=== PATIENT | female | born 1970 | race American Indian/Alaskan Native ===

== ENCOUNTER 2019-05-25 08:04 | Day surgery (SDC) | payer OTHER, SELFPAY ==
[2019-05-20 11:01] VITALS: BMI 26.2
[2019-05-25] VITALS (17 sets, daily range): BP systolic 98–110; BP diastolic 58–71; PULSE 51–81; RESP 9–19; TEMP 36.2–37.2; O2SAT 94–100; BMI 25.9
--- NOTE | 2019-05-25 | PATH_ITS ---
[facility] Accession Number: [id number] . 01 Material submitted: . uterus - UTERUS AND BILATERAL FALLOPIAN TUBES . 02 Diagnosis: Uterus and Bilateral Fallopian Tubes, Supracervical Hysterectomy and Bilateral Salpingectomy: Leiomyoma, 3 cm in greatest dimension. Weakly proliferative endometrium with no diagnostic abnormality. Bilateral fimbriated fallopian tubes with simple benign paratubal cysts. No evidence of malignancy. V 05/27/2019 1146 Local . 02 Electronically signed: . Jj Rojas MD, PhD, Pathologist NPI- [id number] . 01 Gross description: . Received in formalin, labeled uterus and bilateral fallopian tubes, is a morcellated uterus (68 grams, 10.8 x 6.5 x 3.5 cm in aggregate) and two detached fimbriated fallopian tubes (tube #1: length-5.2 cm, diameter-0.3 cm; tube #2: length-6.2 cm, diameter-0.4 cm. The cervix and ovaries are absent. The tissue cannot be oriented and the endometrium and myometrium cannot be grossly measured. The parenchyma is foote and contains a white whorled, solid, firm, well-circumscribed, homogenous nodule (3.0 x 2.3 x 2.2 cm). The serosa is foote smooth and shiny. The fallopian tubes have foote smooth shiny serosa and foote unremarkable lumens. Section code: (A1-A4) parenchyma, civil rights representative; (A5) fallopian tube #1, civil rights representative serial sections; (A6) fimbria #1, bivalved, entirely submitted; (A7) fallopian tube #2, civil rights representative serial sections; (A8) fimbria #2, bivalved, entirely submitted. ([id number]) /MRV 05/26/2019 [facility] . 02 Pathologist provided ICD-10: N93.8, D25.9 . 02 CPT . 387204 Performed at: 01 [facility] [address] [place] [address], [place], [place] [id number] MD Nikolay Hamlin MD Phone: [phone] Performed at: 02 [facility] [address] [place], [place] [id number] MD Amy Apodaca MD Phone: [phone]
[2019-05-25] MEDS: LACTATED RINGERS 1,000 ML 100 ML IV ×4 (08:19→23:14)
--- NOTE | 2019-05-25 09:06 | PM.PREOP ---
Pre-operative Note Interval Note History & Physical reviewed/Exam performed by Physician: Yes Changes to H&P: No
[2019-05-25] MEDS: CEFAZOLIN 2 GM/100 ML FROZ.PIGGY IV (09:20)
--- NOTE | 2019-05-25 10:03 | SUR.OPER ---
Lithotomy on padded OR bed. [place] Pad Positioner under torso. Head on pillow, arms padded and tucked at sides. Legs secured in padded yellow fins stirrups.
[2019-05-25] MEDS: ROPIVACAINE 0.2% PF 2 MG/ML 10ML AMP 40 ML INJ (10:20)
[2019-05-25] MEDS: BUPIVACAINE 0.5% (PF) VIAL 30 ML INJ (10:22)
--- NOTE | 2019-05-25 11:20 | PM.GYNOP.1 ---
Operative Date/Time/Diagnoses Date of procedure: 05/25/19 Time of procedure: 11:20 Pre-op diagnosis: Menorrhagia Fibroid uterus Post-op diagnosis: same Procedure & Clinicians Procedure: Procedures Operation Date: 05/25/19 09:45 Actual Procedures Side Surgeon p Laparoscopic Supracervical Hysterectomy w/bilateral salpingectomy, removal of IUD Melba Glynn MD Indications: Menorrhagia Fibroid uterus Surgeon: Melba Glynn Marketing Manager Health Communications: Joon Ashby Anesthesia Type: General Operative Notes Findings: 10 week size fibroid uterus Adenomyosis Normal ovaries and tubes Left adnexal adhesions Normal liver gallbladder Appendix previously removed Closure Type: primary Specimen(s): left tube, right tube and uterus Applied: catheter (Removed at the end of the case) Estimated blood loss (mL): 75 Blood products transfused: none Procedure in detail: The patient was taken to the operating room where she was placed in the dorsal supine position. After adequate general endotracheal anesthesia was achieved, she was placed in the dorsal lithotomy position, and prepped and draped in the usual sterile fashion. A timeout was performed. A bivalve speculum was placed into the vagina and the anterior lip of the cervix grasped with a single-tooth tenaculum. The cervical os was sequentially dilated until the ZUMI uterine manipulator could pass easily into the endometrial cavity. The single-tooth tenaculum was removed from the anterior lip of the cervix, and the bivalve speculum was removed from the vagina. Attention was then turned to the abdomen where 6 mL of half percent Marcaine with epinephrine were injected in the umbilical fold. A 5 mm incision was made. The Verhees needle was placed into the peritoneal cavity, and its placement confirmed by aspiration and drop test. The Verhees needle was removed. A 5 mm trocar was placed without difficulty. 2 other incisions were made midway between the pubic symphysis and umbilicus after 5 mL of half percent Marcaine with epinephrine were injected. These were 5 mm incisions. Two 5 mm trochars were placed under direct visualization. The right tube was grasped with an atraumatic grasper. Using the plasma kinetic with settings of 40 W the mesosalpinx was cauterized and cut all the way down to the cornua of the uterus. The cornua of the uterus was then grasped with an atraumatic grasper. The utero-ovarian ligaments were cauterized and cut. The round ligament and broad ligament was cauterized and cut with plasma kinetic. Hemostasis was achieved. The bladder flap was created using the plasma kinetic with cautery and cut fpc across. The uterine arteries on the right side were extensively cauterized with plasma kinetic. All of this was repeated on the left side after adhesions were taken down with the point cautery between the tube, uterus, and ovary. The remainder of the bladder flap was created using the plasma kinetic, and the bladder taken down off the lower uterine segment and cervix. Using the Endoloop, the cervix was amputated from the uterus 2 cm above the uterosacral ligaments, after the ZUMI uterine manipulator was removed from the uterus. There was a small amount of bleeding noted from the posterior and left edge of the cervix, and this was cauterized for hemostasis. A sponge stick was placed into the vagina. 6 mL of half percent Marcaine with epinephrine were injected above the pubic symphysis. A 12 mm trocar was placed and then removed. A Ava was used to extend the fascial incision bluntly. An Endobag was placed through the suprapubic trocar and the uterus placed into the Endobag. The Vishal placed into the endobag. The uterus was hand morcellated in approximately 3 pieces. The Vishal was removed from the endobag. The Endobag was removed from the peritoneal cavity. The pelvis was copiously irrigated with warm normal saline. No bleeding was noted. 20 cc of 0.2% ropivacaine were placed over the pedicles. The instruments were removed from the abdomen. The CO2 was allowed to escape. The suprapubic incision was closed on the fascia with 0 Vicryl. The subcutaneous layer on the suprapubic incision was closed with 2 simple interrupted sutures with 3 0 Vicryl. All of the incisions were closed with 4-0 Biosyn in a subcuticular fashion. The moistened sponge stick was removed from the vagina. Sponge, lap, and instrument counts were correct x 2. The patient tolerated the procedure well, was taken to PACU in stable condition. Complications: none Post-operative Condition: stable Disposition: PACU Plan for aftercare: To acute care after recovery
--- NOTE | 2019-05-25 11:44 | SUR.PHASEI ---
1110 late entry. To PACU sleeping, aroused easily to voice, denied pain/nausea.. Skin warm and dry, resp unlabored, Rhonda-pad placed, abdominal dressings CDI. Returned to sleep. 1145 continues sleeping, vss. Attempted to call report to the floor prior to arousing pt; nurse will return call when available. Stable.
--- NOTE | 2019-05-25 12:02 | SUR.PHASEI ---
Glasses returned to pt.
--- NOTE | 2019-05-25 12:29 | SUR.PHASEI ---
1228 waited for receiving RN to receive pt. Assisted SOFTWARE COMPUTER SPECIALIST to ambulate patient to the bathroom after initial VS done. VSS. Voided. Bed down and locked, call light within reach. SCDs to be attached after returning to bed. Pt. wearing glasses, family in the room, clothing bag put in closet. Stable and pleasant.
--- NOTE | 2019-05-25 13:13 | PC.ADMIT ---
[id number] [facility] Admission Note: The patient,Afua Thibodeaux,48 y/o, was given written information regarding hospital policies, unit procedures and contact persons. Patient's smoking status: Former smoker. Vital Signs - 8 hr 05/25/19 08:24 05/25/19 11:10 05/25/19 11:15 Temperature 97.4 F L 97.5 F L 97.4 F L Pulse Rate 67 52 L 51 L Respiratory Rate 15 15 14 Blood Pressure 104/71 108/71 105/58 L Pulse Oximetry 98 98 05/25/19 11:20 05/25/19 11:25 05/25/19 11:30 Temperature Pulse Rate 52 L 52 L 52 L Respiratory Rate 15 11 L 12 Blood Pressure 104/65 103/61 103/63 Pulse Oximetry 99 100 99 05/25/19 11:35 05/25/19 11:45 05/25/19 11:55 Temperature Pulse Rate 51 L 51 L 71 Respiratory Rate 9 L 12 11 L Blood Pressure 100/65 100/63 98/60 Pulse Oximetry 99 99 99 05/25/19 12:05 05/25/19 12:30 Temperature 97.2 F L 97.7 F Pulse Rate 53 L 57 L Respiratory Rate 12 15 Blood Pressure 99/65 101/64 Pulse Oximetry 99 100 Rec'd pt from PACU to rm 226 at 1230 via bed. Pt is AO x3 and making needs known with clear, logical speech. Bedside report received from AIR QUALITY SPECIALIST. Completed admission assessment. Pt reports pain 3/10 to abd. Provided ice pack and educated to pharm and non pharm pain med regimen. Pt verbalizes understanding. Requesting orange juice and water. Order placed per protocol for full liquid diet. Pt denies n/v. VSS. Oriented to room, environment, bedside report, plan of care. Pt verbalizes understanding. Demonstrates use of call light. Sisters at bedside. Will monitor.
[2019-05-25] MEDS: KETOROLAC 30 MG/ML VIAL IV ×2 (13:42→21:10)
[2019-05-25] MEDS: OXYCODONE/ACETAMINOPHEN 5/325 TABLET 2 TAB PO ×2 (15:08→19:24)
--- NOTE | 2019-05-25 20:59 | PC.NURSE ---
pt had scant amount of bright red blood discharge. pain controlled with percocet and ice packs. lap sites are cdi. ivf. sba to the BR.
[2019-05-25] MEDS: DOCUSATE 250 MG CAPSULE PO (21:04)
[2019-05-26] MEDS: OXYCODONE/ACETAMINOPHEN 5/325 TABLET 2 TAB PO ×4 (00:05→13:23)
[2019-05-26 04:28] VITALS: BP 103/60; PULSE 64; RESP 18; TEMP 37.2; O2SAT 97
[2019-05-26 05:49] LABS: Add Manual Diff / Slide Review NO; Basophils Absolute Auto 0 /uL (0-100); Basophils Percent Auto 0.4 % (0-2); Eosinophils Absolute Auto 0 /uL (0-450); Eosinophils Percent Auto 0.3 % (2-4); Hemoglobin 12.4 g/dL (12.0-16.0); Lymphocytes Absolute Auto 1800 /uL (1100-4500); Lymphocytes Percent Auto 17.5 % (25-40); Mean Corpuscular HGB Conc 33.6 % (30-36); Mean Corpuscular Hemoglobin 30.4 PG (26-34); Mean Corpuscular Volume 90.5 fL (80-100); Monocytes Absolute Auto 600 /uL (0-900); Monocytes Percent Auto 5.6 % (3-14); Neutrophils Absolute Auto 7700 /uL (1500-7000); Neutrophils Percent Auto 76.2 % (50-75); Platelet Count 230 X10^3/uL (150-400); Red Blood Cell Count 4.09 X10^6/uL (4.0-5.2); Red Cell Distribution Width 13.3 % (11.6-14.8); White Blood Cell Count 10.1 X10^3/uL (4.5-11.0)
[2019-05-26 08:00] VITALS: BP 102/71; PULSE 58; RESP 15; TEMP 36.7; O2SAT 98
[2019-05-26] MEDS: DOCUSATE 250 MG CAPSULE PO (08:32)
--- NOTE | 2019-05-26 13:46 | PC.NURSE ---
Day Shift- Pt voided approx 400mls of yellow urine with 3 scant clots present around 0820. Bladder scanned at 0850 for 1ml. Abd lap sites X4 gauze and tegaderm dressings CDI. Rhonda-pad has scant spotting. OOB with SBA, steady gait. Rates 4-5/10 dull aching and slight bloating to abd. Pain management plan discussed PRN Percocet given at 0835 with good effect. Pt stated feeling slightly nauseated, no flatus this AM. Pt had approx 600mls around 1000, stated feeling much better after. Pt had another small episode after lunch. Tolerating fluids and crackers. Explained to pt that if nausea is persistent and unable to keep food or fluids down to call Dr. Glynn office. Discharge summary packet reviewed with pt, Pt agrees to call Dr. Glynn office to make a follow up appointment for in 2 weeks. Pt states has all belongings. Pt left unit in no distress at 1346 via wheelchair with POCKET SETTER LOCKSTITCH escort. Pt's mother and brother present to drive pt home. Pt does have prescription for Oxycodone. Also instructed on preventing constipation.
--- NOTE | 2019-05-26 14:48 | CM.DANOTE ---
DCP/Assessment: Reviewed chart. Patient is a 48yr old female admitted to [facility] for hysterectomy performed on 05-25-[address] Glynn. Primary payor is 1)[facility] 2)[employer]. PCP is Dr. Lujan. Met with patient explained CM/SW role. Patient hopes to d/c home today. Patient is completely I in all ADL's. Patient does not anticipate any d/c planning needs. P: Home when stable. EMEKA Flowers Discharge Planning/Care Management CM Discharge Assessment Start: 05/26/19 13:48 Freq: Status: Discharge Protocol: Document 05/26/19 14:47 KJS (Rec: 05/26/19 14:48 KJS [id number]) Discharge Planning Assessment Assigned Drapery Examiner EMEKA Flowers Contact Information Tu Zuñiga (x-) Advance Directives? No Advance Directives on File No History Provided By Patient Has Patient been admitted in last 30 No days? Prior Living Arrangements House Household Members none Type of transporation used prior to Drives own vehicle admit Independent with ADL's Yes Is patient alert and oriented? Yes Caregiver for Another No Barriers to Discharge No Discharge Plan Home Referrals Initiated None needed Whiteboard Updated in Patient Room with Yes name and ext. # of Drapery Examiner Review Status In Process Next Review Type Continued Stay Review Pre-Anesthesia Assessment Start: 05/20/19 11:01 Freq: Status: Complete Protocol: Document 05/20/19 11:01 CAB (Rec: 05/20/19 11:13 CAB [id number]) Pre-Anesthesia Assessment Patient Information Reviewed Via Chart Review Seen Specialist in Last 12 Months Yes Specialist Seen Cloth Booker Primary Language Zambian Strike Plate Attacher Required No Height 161.29 cm Weight 68.039 kg Body Mass Index (BMI) 26.2 Barriers to Learning None Hx Anesthesia Reactions No Anesthesia Review Requested No Coffin Maker No alcohol intake current Smoking Status Former smoker History of Falling (Recent or History of No ) Patient is completely paralyzed or No completely immobile Mental Status Oriented to own ability Is patient on oxygen? No Does patient have KRUSE/SOB No Hx Sleep Apnea No Currently Taking a Beta Joseph No Can You Climb a Flight of Stairs Without Yes SOB Hx Chest Pain No Hx SOB No Hx Syncope or Dizziness No Anti-Coagulant Therapy No Has a Recycling Operations Manager No Cardiac Testing No Hx Pacemaker/ICD No Pacemaker Rep Required? No Cardiac Clearance Received Not Applicable dysphagia No Urinary Catheter Present No Hx Urinary Self Catheterization No Diabetes No Patient No Lactating No Marital Status Patient Discharge Plan Description Return Home Advance Directives? No
--- NOTE | 2019-05-27 17:19 | P.DS_ITS ---
History of Present Illness History of Present Illness Date Patient Seen: 05/26/19 Time Patient Seen: 13:15 Chief complaint: [id number] *OPB* Discharge Providers Provider Discharge Date: 05/26/19 Primary care physician: Bella Lujan DO Discharge provider: Melba Glynn MD Summary Hospital Course Discharge Diagnosis: Uterine fibroids Menorrhagia Dysmenorrhea Hospital Course: Patient presented on 05/25/2019 for a scheduled laparoscopic supracervical hysterectomy with bilateral salpingectomy. She underwent this procedure without complication. Her catheter was removed at the end of the p rocedure and she was able to void without difficulties. On postop day # 1 she was tolerating a diet, ambulating without assistance, pain was well controlled. She was discharged home to follow up at 2 weeks. Status at Discharge Cognitive/behavioral status at discharge: oriented Functional status at discharge: independent ambulation Overall status at discharge: patient is progressing back to baseline Time Spent with Patient Time spent: Less than 30 minutes Exam Vital Signs (past 8 hours): Oxygen Delivery Method Room Air Oxygen Flow Rate 0 Narrative Exam Narrative: Generally: Patient is sitting up in bed, no acute distress Lungs: Clear to auscultation bilaterally Cardiovascular: Regular rate and rhythm Abdomen: Soft, good bowel sounds. Incisions: Clean dry and intact with op sites Extremities: Negative Homans Objective Labs Result Diagrams: 05/26/19 05:11 Discharge Plan Discharge Plan Patient Disposition: Home Discharge comment: Call with fever, chills, redness or drainage around incisions or bleeding vaginally more than spotting to light Ibuprofen 600mg every 6 hours as needed Discharge Med Rec/Prescriptions Prescriptions: New oxycodone-acetaminophen [Percocet] 5-325 mg tablet 1 tab PO Q4-6H PRN (Reason: pain) Qty: 30 RF: 0 No Action lorazepam [Ativan] 0.5 mg tablet 0.25 mg PO BID PRN (Reason: anxiety) Qty: 30 RF: 1 Follow up/Referrals: Melba Glynn MD [Physician] - 2 Weeks (Please call office to make follow up apointment.) Discharge Orders: Discharge (Order); Ordered 05/26/19 Ordered By: Melba Glynn Provider Discharge Instructions Diet: Regular Skin/Wound/Dressing Care Report to your healthcare provider any signs of infection, such as:: chills, fever, increased pain, unusual drainage and unusual redness Dressing: Remove outer plastic dressings and guaze tomorrow after a shower Visit Report/Discharge Packet Instructions: Constipation, DI for Hysterectomy, How to Prevent Falls, DI for Postoperative Pain, Oxycodone/Acetaminophen (By mouth) Stand Alone Forms: Surgery Discharge Discharge Data Primary Care Provider: Bella Lujan Attending Provider: Melba Glynn Discharges patient from system. Discharge Date/Time: 05/26/19 13:46
== END 2019-05-26 13:46 | disposition home or self-care (01) ==
LOC: OR 08:04 → AC 08:08
PROVIDERS: PCP Family Medicine; Visit Provider Obstetrics & Gynecology
PROC: 0UT94ZL Resection of Uterus, Supracervical, Percutaneous Endoscopic Approach (ICD-10-PCS; CPT 58542; principal; 2019-05-25 09:45)
DX: D25.9 Leiomyoma of uterus, unspecified (principal); N93.8 Other specified abnormal uterine and vaginal bleeding
CPT/HCPCS: 58542; 36415; 85025; J0330; J0690; J1100; J1885; J2405; J2704; J2795; J3010

== ENCOUNTER → 2020-06-22 10:35 | Outpatient (CLI) | payer OTHER, SELFPAY ==
[2019-05-25 12:30] VITALS: BMI 25.9
[2020-06-22 12:01] LABS: Alanine Aminotransferase 30 IU/L (<35); Albumin 4.6 g/dL (3.5-5.0); Albumin Globulin Ratio 1.3 (1.0-2.8); Alkaline Phosphatase 71 U/L (38-126); Aspartate Aminotransferase 35 IU/L (14-36); BUN Creatinine Ratio 10.7 (6-22); Bilirubin Total 0.9 mg/dL (0.2-1.3); Blood Urea Nitrogen 8 mg/dL (7-17); Calcium 9.2 mg/dL (8.4-10.2); Carbon Dioxide 29 mmol/L (22-32); Chloride 104 mmol/L (98-107); Cholesterol 252 mg/dL (140-199); Estimated Glomerular Filt Rate > 60.0 mL/min (>60); Globulin 3.6 g/dL (1.7-4.1); Glucose 89 mg/dL (70-100); HDL Cholesterol 103 mg/dL (40-60); HEMOLYSIS < 15 (0-50); LDL Cholesterol Calculated 123 mg/dL (<100); Sodium 139 mmol/L (137-145); Total Protein 8.2 g/dL (6.3-8.2); Triglycerides 132 mg/dL (35-150)
[2020-06-22 12:52] LABS: TSH w/ Reflex to FT4 1.66 uIU/mL (0.47-4.68)
== END ==
PROVIDERS: PCP Family Medicine; Referring Provider Family Medicine; Visit Provider Family Medicine
DX: E66.9 Obesity, unspecified (principal); E78.5 Hyperlipidemia, unspecified; F41.9 Anxiety disorder, unspecified; N95.1 Menopausal and female climacteric states
CPT/HCPCS: 36415; 80053; 80061; 83001; 84443

== ENCOUNTER 2021-03-06 02:35 | Emergency (ER) | payer OTHER, SELFPAY ==
[2019-05-25 12:30] VITALS: BMI 25.9
[2021-03-06 02:38] VITALS: BP 125/75; PULSE 84; RESP 18; TEMP 36.4; O2SAT 99; BMI 30.1
--- NOTE | 2021-03-06 02:50 | ED_ITS ---
HPI - GI Bleed General Chief complaint: GI Bleed Stated complaint: Vomiting blood Time Seen by Provider: 03/06/21 02:37 History of Present Illness HPI Narrative: 50-year-old female former smoker and daily drinker presents with a chief complaint of a single painless episode of bright red vomiting earlier today. She is not dizzy nor weak or lightheaded. She denies any pain. She denies any recent dietary change or new medications. She never had any upper GI bleeding, she has never had an endoscopy. She denies any history of cirrhosis or other. She does not take blood thinners or use large amounts of NSAIDs. Related Data Previous Rx's Medication Instructions Recorded estradiol 0.05 mg/24 hr semiweekly 1 patch TRANSDERMAL 2XW #24 each 12/21/20 transdermal patch lorazepam 0.5 mg tablet (Ativan) 0.25 mg PO BID PRN #30 tab 12/22/20 escitalopram oxalate 10 mg tablet 10 mg PO DAILY #90 tab 02/13/21 ondansetron 4 mg disintegrating 4 mg PO TID-QID PRN #10 tab 03/06/21 tablet pantoprazole 40 mg tablet,delayed 40 mg PO DAILY #30 tab 03/06/21 release (Protonix) Allergies Allergy/AdvReac Type Severity Reaction Status Date / Time No Known Drug Allergies Allergy Verified 02/13/21 08:23 Review of Systems Review of Systems Narrative: GENERAL: Denies chills, fatigue, malaise, fever, sweats. HEENT: Denies sinus pain, ear pain, sore throat, difficulty swallowing, dizzi ness. RESPIRATORY: Denies dyspnea, cough, wheezing, hemoptysis, sputum. CARDIOVASCULAR: Denies chest pain, palpitations, orthopnea, edema, GASTROINTESTINAL: See HPI : Denies dysuria, frequency, incontinence, hematuria, urinary retention. MUSCULOSKELETAL: denies weakness, joint pain, or bony pain SKIN: Denies rash, skin lesions, or other NEUROLOGIC: Denies weakness, headache, numbness, change in speech, confusion, seizures, incoordination. PSYCHIATRIC: No concerning psychosocial issues. 12 point review of systems is negative except for those stated above Patient History Medical History Anxiety (~2012) Dermatitis DUB (dysfunctional uterine bleeding) Rosacea (~2007) Surgical History Anesthesia S/P laparoscopic supracervical hysterectomy (~05/25/19) Status post appendectomy (~1999) Family History Grandmother Breast cancer Heart disease Hypertension Heart attack Mother History of cholecystectomy Sister History of cholecystectomy Father No problems noted. Grandfather Pneumonia Social History household members: none Smoking Status: Former smoker alcohol intake: current Smoking Status: Former smoker Exam Narrative Exam Narrative: GENERAL: [50] year old patient appears stated age. Well- developed patient, in mild distress. HEAD: Atraumatic. Normocephalic. EYES: Pupils equal round and reactive. Extraocular motions intact. No scleral icterus. No injection or drainage. ENT: Nose without bleeding, purulent drainage. Throat without erythema, tonsillar hypertrophy or exudate. Airway patent. NECK: Trachea midline. Non tender CARDIOVASCULAR: Regular rate and rhythm without murmurs, gallops, or rubs. RESPIRATORY: Clear to auscultation. Breath sounds equal bilaterally. No wheezes, rales, or rhonchi. GASTROINTESTINAL: Abdomen soft, non-tender, nondistended. EXTREMITIES: No edema or joint tenderness. BACK: Nontender without deformity or crepitance. No flank tenderness. NEURO: AOx3. SKIN: No rash or erythema of visible areas Initial Vital Signs Initial Vital Signs: Vital Signs Temperature 97.5 F L 03/06/21 02:38 Pulse Rate 84 03/06/21 02:38 Respiratory Rate 18 03/06/21 02:38 Blood Pressure 125/75 03/06/21 02:38 Pulse Oximetry 99 03/06/21 02:38 Course Course Course Narrative: Patient has very reassuring physical exam and labs. Steff Blatchford bleeding scale score is 0. Orders Ordered: Discontinued Medications Octreotide Acetate (Octreotide 100 Mcg/Ml Vial) 50 mcg IV NOW ONE Stop: 03/06/21 03:33 Last Admin: 03/06/21 04:09 Dose: 50 mcg Documented by: MANOJ Ondansetron HCl (Ondansetron 4 Mg/2 Ml Inj) 4 mg IV NOW ONE Stop: 03/06/21 03:33 Last Admin: 03/06/21 04:09 Dose: 4 mg Documented by: MANOJ Pantoprazole Sodium (Pantoprazole 40 Mg Vial) 40 mg IV NOW ONE Stop: 03/06/21 03:33 Last Admin: 03/06/21 04:09 Dose: 40 mg Documented by: MANOJ Consultations Consultation #1: Discussed with on-call surgery. Given her lack of ongoing symptoms, reassuring labs and vital signs and low bleeding risk score she is appropriate for discharge and follow-up for outpatient endoscopy. Return precautions to be given Vital Signs Vital signs: Vital Signs - 8 hr 03/06/21 02:38 Temperature 97.5 F L Pulse Rate 84 Respiratory Rate 18 Blood Pressure 125/75 Pulse Oximetry 99 MDM - GI Bleed Lab Data Result diagrams: 03/06/21 03:20 03/06/21 03:20 Labs: Lab Results 03/06/21 03/06/21 03/06/21 Range/Units 03:20 03:20 03:45 WBC 5.1 (4.5-11.0) X10^3/uL RBC 4.50 (4.0-5.2) X10^6/uL Hgb 13.3 (12.0-16.0) g/dL Hct 40.3 (36-46) % MCV 89.4 (80-100) fL MCH 29.4 (26-34) PG MCHC 32.9 (30-36) % RDW 13.9 (11.6-14.8) % Plt Count 261 (150-400) X10^3/uL Neut % (Auto) 45.1 L (50-75) % Lymph % (Auto) 41.8 H (25-40) % [place] % (Auto) 8.0 (3-14) % Eos % (Auto) 3.9 (2-4) % Baso % (Auto) 1.2 (0-2) % Neut # (Auto) 2300 (3638-9248) /uL Lymph # (Auto) 2100 (9185-9445) /uL [place] # (Auto) 400 (0-900) /uL Eos # (Auto) 200 (0-450) /uL Baso # (Auto) 100 (0-100) /uL PT 11.2 (10.1-12.7) SECONDS INR 1.0 (0.9-1.3) Sodium 137 (137-145) mmol/L Potassium 3.5 (3.4-5.1) mmol/L Chloride 107 (98-107) mmol/L Carbon Dioxide 28 (22-32) mmol/L BUN 9 (7-17) mg/dL Creatinine 0.63 (0.52-1.04) mg/dL Estimated GFR > 60.0 (>60) mL/min BUN/Creatinine Ratio 14.3 (6-22) Glucose 96 (70-100) mg/dL Calcium 8.8 (8.4-10.2) mg/dL Magnesium 1.7 (1.6-2.3) mg/dL Total Bilirubin 0.4 (0.2-1.3) mg/dL AST 31 (14-36) IU/L ALT 29 (<35) IU/L Alkaline Phosphatase 62 (38-126) U/L Total Protein 7.0 (6.3-8.2) g/dL Albumin 3.9 (3.5-5.0) g/dL Globulin 3.1 (1.7-4.1) g/dL Albumin/Globulin Ratio 1.3 (1.0-2.8) Lipase 215 (23-300) U/L Blood Type Antibody Screen 03/06/21 Range/Units 03:50 WBC (4.5-11.0) X10^3/uL RBC (4.0-5.2) X10^6/uL Hgb (12.0-16.0) g/dL Hct (36-46) % MCV (80-100) fL MCH (26-34) PG MCHC (30-36) % RDW (11.6-14.8) % Plt Count (150-400) X10^3/uL Neut % (Auto) (50-75) % Lymph % (Auto) (25-40) % [place] % (Auto) (3-14) % Eos % (Auto) (2-4) % Baso % (Auto) (0-2) % Neut # (Auto) (0423-7203) /uL Lymph # (Auto) (9144-0972) /uL [place] # (Auto) (0-900) /uL Eos # (Auto) (0-450) /uL Baso # (Auto) (0-100) /uL PT (10.1-12.7) SECONDS INR (0.9-1.3) Sodium (137-145) mmol/L Potassium (3.4-5.1) mmol/L Chloride (98-107) mmol/L Carbon Dioxide (22-32) mmol/L BUN (7-17) mg/dL Creatinine (0.52-1.04) mg/dL Estimated GFR (>60) mL/min BUN/Creatinine Ratio (6-22) Glucose (70-100) mg/dL Calcium (8.4-10.2) mg/dL Magnesium (1.6-2.3) mg/dL Total Bilirubin (0.2-1.3) mg/dL AST (14-36) IU/L ALT (<35) IU/L Alkaline Phosphatase (38-126) U/L Total Protein (6.3-8.2) g/dL Albumin (3.5-5.0) g/dL Globulin (1.7-4.1) g/dL Albumin/Globulin Ratio (1.0-2.8) Lipase (23-300) U/L Blood Type O Positive Antibody Screen Negative Discharge Plan Departure Patient Disposition: Home Clinical Impression: Acute GI bleeding Instructions: Gastrointestinal Bleeding Activity Restrictions/Additional Instructions: *You have been diagnosed with [single episode of gastrointestinal bleeding] *What to do: *Please continue to take your regular medications as directed. [ x] New medication prescriptions sent to your pharmacy: [ ] [ ] New medication written as a paper prescription [ ] No new medications given *Please follow up with your primary care provider in 2-3 days, call for an appointment. Let them know you were seen in the Emergency Department and that we ask that you be seen in follow up. We will electronically transmit a record of today's note if your PCP is in our system *If you do not have a primary care provider please contact the [facility] Resource line at [phone]. They will ask some questions about your medical history and help get you set up with a doctor in the community. *Return to Emergency Department if you should have any new, worsening or concerning symptoms, such as [fever greater than 101 F, shaking chills, worsening pain, persistent vomiting or other bothersome symptoms] Prescriptions: New ondansetron 4 mg tablet,disintegrating 4 mg PO TID-QID PRN (Reason: nausea and vomiting) Qty: 10 RF: 0 pantoprazole [Protonix] 40 mg tablet,delayed release (DR/EC) 40 mg PO DAILY Qty: 30 RF: 0 No Action estradiol 0.05 mg/24 hr patch semiweekly 1 patch transdermal 2XW Qty: 24 RF: 0 lorazepam [Ativan] 0.5 mg tablet 0.25 mg PO BID PRN (Reason: anxiety) Qty: 30 RF: 2 escitalopram oxalate 10 mg tablet 10 mg PO DAILY Qty: 90 RF: 0 Referrals: Kyung Smith MD [Physician] - Bella Lujan DO [Primary Care Provider] -
[2021-03-06 03:45] LABS: Add Manual Diff / Slide Review NO; Basophils Absolute Auto 100 /uL (0-100); Basophils Percent Auto 1.2 % (0-2); Eosinophils Absolute Auto 200 /uL (0-450); Eosinophils Percent Auto 3.9 % (2-4); Hematocrit 40.3 % (36-46); Hemoglobin 13.3 g/dL (12.0-16.0); Lymphocytes Absolute Auto 2100 /uL (1100-4500); Lymphocytes Percent Auto 41.8 % (25-40); Mean Corpuscular HGB Conc 32.9 % (30-36); Mean Corpuscular Hemoglobin 29.4 PG (26-34); Mean Corpuscular Volume 89.4 fL (80-100); Monocytes Absolute Auto 400 /uL (0-900); Neutrophils Absolute Auto 2300 /uL (1500-7000); Neutrophils Percent Auto 45.1 % (50-75); Platelet Count 261 X10^3/uL (150-400); Red Cell Distribution Width 13.9 % (11.6-14.8); White Blood Cell Count 5.1 X10^3/uL (4.5-11.0)
[2021-03-06 03:49] LABS: Alanine Aminotransferase 29 IU/L (<35); Albumin 3.9 g/dL (3.5-5.0); Albumin Globulin Ratio 1.3 (1.0-2.8); Alkaline Phosphatase 62 U/L (38-126); Aspartate Aminotransferase 31 IU/L (14-36); BUN Creatinine Ratio 14.3 (6-22); Bilirubin Total 0.4 mg/dL (0.2-1.3); Blood Urea Nitrogen 9 mg/dL (7-17); Calcium 8.8 mg/dL (8.4-10.2); Carbon Dioxide 28 mmol/L (22-32); Chloride 107 mmol/L (98-107); Estimated Glomerular Filt Rate > 60.0 mL/min (>60); Globulin 3.1 g/dL (1.7-4.1); Glucose 96 mg/dL (70-100); HEMOLYSIS < 15 (0-50); Lipase 215 U/L (23-300); Magnesium 1.7 mg/dL (1.6-2.3); Potassium 3.5 mmol/L (3.4-5.1); Sodium 137 mmol/L (137-145)
[2021-03-06 04:08] LABS: Prothrombin Time 11.2 SECONDS (10.1-12.7)
[2021-03-06] MEDS: PANTOPRAZOLE 40 MG VIAL IV (04:09)
[2021-03-06] MEDS: ONDANSETRON 4 MG/2 ML INJ IV (04:09)
[2021-03-06] MEDS: OCTREOTIDE 100 MCG/ML VIAL 50 MCG IV (04:09)
[2021-03-06 05:40] VITALS: BP 116/84; PULSE 84; RESP 13; O2SAT 97
== END 2021-03-06 05:30 | disposition home or self-care (01) ==
PROVIDERS: Emergency Provider Emergency Medicine; PCP Family Medicine
DX: K92.2 Gastrointestinal hemorrhage, unspecified (principal)
CPT/HCPCS: 36415; 80053; 83690; 83735; 85025; 85610; 86850; 86900; 86901; 96374; 96375; 99284; C9113; J2354; J2405

== ENCOUNTER → 2021-03-10 17:08 | Outpatient (CLI) | payer OTHER, SELFPAY ==
[2021-03-10 10:00] VITALS: BMI 25.9
[2021-03-10 18:04] LABS: Add Manual Diff / Slide Review NO; Basophils Absolute Auto 100 /uL (0-100); Basophils Percent Auto 0.7 % (0-2); Eosinophils Absolute Auto 200 /uL (0-450); Hematocrit 40.8 % (36-46); Hemoglobin 13.5 g/dL (12.0-16.0); Lymphocytes Absolute Auto 3600 /uL (1100-4500); Lymphocytes Percent Auto 43.6 % (25-40); Monocytes Absolute Auto 500 /uL (0-900); Monocytes Percent Auto 6.1 % (3-14); Neutrophils Absolute Auto 4000 /uL (1500-7000); Neutrophils Percent Auto 47.6 % (50-75); Platelet Count 287 X10^3/uL (150-400); Red Blood Cell Count 4.48 X10^6/uL (4.0-5.2); Red Cell Distribution Width 13.6 % (11.6-14.8); White Blood Cell Count 8.3 X10^3/uL (4.5-11.0)
[2021-03-10 18:50] LABS: TSH w/ Reflex to FT4 2.02 uIU/mL (0.47-4.68)
[2021-03-13 15:17] LABS: ANA Screen, IFA Negative (.)
== END ==
PROVIDERS: PCP Family Medicine; Referring Provider Family Medicine; Visit Provider Family Medicine
DX: L30.9 Dermatitis, unspecified (principal); K59.00 Constipation, unspecified; K92.2 Gastrointestinal hemorrhage, unspecified; R53.83 Other fatigue; R63.5 Abnormal weight gain
CPT/HCPCS: 36415; 84443; 85025; 86038

== ENCOUNTER → 2021-07-12 14:57 | Outpatient (CLI) | payer OTHER, SELFPAY ==
[2021-03-10 10:00] VITALS: BMI 25.9
[2021-07-12 15:40] LABS: COVID19 -Nasal RAPID Negative (Negative)
== END ==
PROVIDERS: PCP Family Medicine; Visit Provider Surgery
DX: Z01.812 Encounter for preprocedural laboratory examination (principal); Z20.822 Contact with and (suspected) exposure to COVID-19
CPT/HCPCS: 87635; C9803

== ENCOUNTER 2021-07-13 14:20 | Day surgery (SDC) | payer OTHER, SELFPAY ==
[2021-03-10 10:00] VITALS: BMI 25.9
[2021-07-13 14:37] VITALS: BP 108/73; PULSE 73; RESP 16; TEMP 36.1; O2SAT 97; BMI 33.6
--- NOTE | 2021-07-13 15:11 | P.HP_ITS ---
History of Present Illness History of Present Illness Date Patient Seen: 07/13/21 Time Patient Seen: 15:11 Chief complaint: DX EGD & COLONOSCOPY Narrative: 50-year-old woman here for diagnostic EGD and colonoscopy secondary to an episode of GI bleed. Skin currently feeling well abdominal pain no further blood per rectum hematemesis. Please refer to the H& P from March 2021 for further detail. Patient History Medical History Anxiety (~2012) Dermatitis DUB (dysfunctional uterine bleeding) Rosacea (~2007) Surgical History Anesthesia S/P laparoscopic supracervical hysterectomy (~05/25/19) Status post appendectomy (~1999) Family & Social History Family History Grandmother Breast cancer Heart disease Hypertension Heart attack Mother History of cholecystectomy Sister History of cholecystectomy Father No problems noted. Grandfather Pneumonia Social History: household members none Tobacco & Substance use: Smoking Status Former smoker alcohol intake current alcohol intake frequency 3 or more drinks per day Substance Use Type marijuana Meds Home Medications and Allergies Home Medications Medication Instructions Recorded Confirmed Type escitalopram oxalate 10 mg tablet 10 mg PO DAILY #90 tab 06/21/21 Rx estradiol 0.05 mg/24 hr semiweekly 1 patch TRANSDERMAL 2XW #24 each 06/21/21 Rx transdermal patch lorazepam 0.5 mg tablet (Ativan) 0.25 mg PO BID PRN #30 tab 06/21/21 Rx ondansetron 4 mg disintegrating 4 mg PO TID-QID PRN #20 tab 06/21/21 Rx tablet pantoprazole 40 mg tablet,delayed 40 mg PO DAILY #90 tab 06/21/21 Rx release (Protonix) triamcinolone acetonide 0.5 % 1 applic TOPICAL BID #80 g 06/21/21 Rx topical cream Allergies Allergy/AdvReac Type Severity Reaction Status Date / Time No Known Drug Allergies Allergy Verified 07/13/21 14:35 Exam Vital Signs (past 8 hours): - 07/13/21 14:37 Temperature 97 F L Pulse Rate 73 Respiratory Rate 16 Blood Pressure 108/73 Pulse Oximetry 97 Oxygen Delivery Method Room Air Narrative Exam Narrative: Constitutional-She is oriented to person, place and time. No apparent distress Cardiovascular- regular rate, no peripheral edema Pulmonary-unlabored respiratory effort, no audible wheezing Abdominal-soft, non-tender, non-distended Musculoskeletal-no cyanosis or clubbing Neurological-nonfocal, normal strength throughout Skin-warm and dry Assessment & Plan Assessment and plan (1) GI bleed: Status: Acute Assessment & Plan narrative: The patient requires evaluation for a history of GI bleed colonoscopy and esophagoduodenoscopy are recommended. Technical details were discussed. Risks, benefits, alternatives explained. Risks incl uding but not limited to myocardial infarction, aspiration, bleeding, pain, missed lesion, incomplete examination, need for further radiographic studies, perforation, and need for major abdominal surgery were discussed. All questions were answered to their satisfaction, and they are in agreement with this plan. Time Spent With Patient Critical Care time: I spent a total of [] minutes of critical care time on this patient's care today; this time is exclusive of procedural time.
[2021-07-13] MEDS: LIDOCAINE 4% SOLN 50 ML 20 ML TOP (15:15)
[2021-07-13] MEDS: fentaNYL 250 MCG/5 ML INJ IV (15:28)
[2021-07-13] MEDS: MIDAZOLAM 5 MG/5 ML VIAL IV (15:31)
--- NOTE | 2021-07-13 15:42 | PM.OP.EC ---
Operative Date/Time/Diagnoses Date of procedure: 07/13/21 Time of procedure: 15:42 Pre-op diagnosis: GI bleed Post-op diagnosis: same Procedure & Clinicians Study performed: EGD and Colonoscopy Same procedure as scheduled: Yes Indications: Hx of GI bleed Surgeon: Jimbo Slaughter Procedure Notes Procedure in detail: Medications: Conscious sedation using 7mg IV midazolam and 150mcg IV of fentanyl The history and physical was performed/updated and the patient is ASA class is 2. The procedure was discussed in detail with the patient. Potential risks complications including infection, bleeding, missed diagnosis, perforation, need for surgery, and were explained. Their questions were answered and informed consent was obtained. Patient placed in left lateral decubitus position. Time out was performed. Procedural sedation was administered with Versed and Fentanyl. A bite block was placed. the scope was inserted into the mouth and advanced through the esophagus and into the stomach. The pylorus was intubated and the duodenum was normal to the 2nd portion. The scope was retroflexed within the stomach and there was a small hiatal hernia. No ulcers, or gastritis. The scope was withdrawn into the esophagus the Z line was seen at 35 cm from the incisions. There was no Carimchael's esophagitis or masses or strictures. Stomach was desufflated and scope removed. Patient tolerated procedure well. Examination began with a thorough inspection of the perianal area there was no evidence of fissures, fistulae, external hemorrhoids or cutaneous malignancy. The colonoscopy scope was then placed into the anal canal and was advanced to the cecum, which was identified by the ileocecal valve, the appendiceal orifice and the confluence of the taenia. The scope was then slowly withdrawn examining colon thoroughly in all directions, irrigating it of any residual stool. FINDINGS 1. No masses or polyps 2. No gastritis or ulcers 3. Hiatal hernia The patient tolerated the procedure well. They will be discharged once criteria are met. The prep was of good/excellent quality. The withdrawl time was 7 minutes. The sedation time was 25 minutes. Specimen(s): none sent Complications: none Impression: normal colonoscopy and EGD Post-procedure Recommendations: Colonscopy in 10 years, Reflux diet and Continue medication(s) (Pantoprazole) Disposition: same day surgery
[2021-07-13 15:46] VITALS: BP 140/90; PULSE 75; RESP 14; TEMP 36.3; O2SAT 96
[2021-07-13 15:49] VITALS: BP 122/86; PULSE 68; RESP 12; O2SAT 96
[2021-07-13 15:53] VITALS: BP 123/87; PULSE 63; RESP 12; O2SAT 97
[2021-07-13 15:59] VITALS: BP 129/84; PULSE 78; RESP 12; O2SAT 98
[2021-07-13 16:10] VITALS: BP 126/78; PULSE 84; RESP 12; O2SAT 98
[2021-07-13] MEDS: SIMETHICONE 80 MG TABLET PO (16:42)
== END 2021-07-13 17:10 | disposition home or self-care (01) ==
PROVIDERS: PCP Family Medicine; Referring Provider Surgery; Visit Provider Surgery
PROC: 0DJ08ZZ Inspection of Upper Intestinal Tract, Via Natural or Artificial Opening Endoscopic (ICD-10-PCS; CPT 43235; principal; 2021-07-13 15:15)
PROC: 0DJD8ZZ Inspection of Lower Intestinal Tract, Via Natural or Artificial Opening Endoscopic (ICD-10-PCS; CPT 45378; 2021-07-13 15:15)
DX: K92.2 Gastrointestinal hemorrhage, unspecified (principal); K44.9 Diaphragmatic hernia without obstruction or gangrene
CPT/HCPCS: 43235; 45378; 99152; J2250; J3010

== ENCOUNTER → 2022-03-09 11:00 | Outpatient (CLI) | payer OTHER, SELFPAY ==
[2021-03-10 10:00] VITALS: BMI 25.9
== END ==
PROVIDERS: PCP Pediatrics; Referring Provider Pediatrics; Visit Provider Pediatrics
DX: Z53.20 Procedure and treatment not carried out because of patient's decision for unspecified reasons (principal)

== ENCOUNTER → 2022-03-09 11:00 | Outpatient (CLI) | payer OTHER, SELFPAY ==
[2021-03-10 10:00] VITALS: BMI 25.9
== END ==
LOC: MAMMO 05-02 10:57
PROVIDERS: PCP Pediatrics; Referring Provider Pediatrics; Visit Provider Pediatrics
DX: Z53.20 Procedure and treatment not carried out because of patient's decision for unspecified reasons (principal)